=== PATIENT | female | born 1995 | race Caucasian/White ===

== ENCOUNTER 2018-10-15 14:40 | Emergency (ER) | payer MEDICAID, OTHER, SELFPAY ==
[~2018-10-15] VITALS: Ht 180.3 cm; Wt 75.0 kg
[2018-10-15] MEDS ORDERED: LEXA5TAB13 PO (14:46)
[2018-10-15] MEDS ORDERED: ACETAMINOPHEN 325 MG TAB PO ONE (15:00)
[2018-10-15 15:19] LABS: HEMATOCRIT 44.2 % (36.0-47.0); HEMOGLOBIN 14.6 g/dl (12.0-15.5); MEAN CORPUSCULAR HEMOGLOBIN 29.8 pg (27.0-33.0); MEAN CORPUSCULAR VOLUME 90.2 fl (80.0-96.0); PLATELET COUNT, AUTOMATED 291 10^3/uL (150-450); WHITE BLOOD COUNT 10.3 10^3/uL (4.0-10.0)
[2018-10-15 15:41] LABS: BLOOD UREA NITROGEN 9 MG/DL (7-18); CALCIUM LEVEL 9.4 MG/DL (8.5-10.1); CARBON DIOXIDE LEVEL 26 MEQ/L (21-32); CHLORIDE LEVEL 106 MEQ/L (98-107); CREATININE FOR GFR 0.78 MG/DL (0.55-1.30); GLOMERULAR FILTRATION RATE > 60.0 (>60); GLUCOSE, FASTING 108 MG/DL (70-100); POTASSIUM SERUM 4.6 MEQ/L (3.5-5.1); SODIUM LEVEL 137 MEQ/L (136-145)
[2018-10-15 15:42] LABS: HCG, SERUM QUALITATIVE NEGATIVE (NEGATIVE)
--- NOTE | 2018-10-15 16:06 | REP ---
Clinical: Trauma . Comparison: None . Findings: The ventricles, sulci, and cisterns are normal in position and appearance. Cano-white differentiation is maintained. No acute intracranial hemorrhage, mass/mass effect, pathology or trauma/injury. No evidence for acute infarction. No extra-axial fluid collection. Calvarium is intact. Paranasal sinuses and mastoid air cells are clear. Impression: Normal noncontrast head CT. No evidence for acute intracranial pathology or trauma/injury. Electronically Signed by Narendra Jo MD 10/15/2018 03:57 P
--- NOTE | 2018-10-15 16:08 | REP ---
Clinical: Trauma . Technique: Axial noncontrast images from the skull base to the thoracic inlet with coronal and sagittal re-formations Findings: Normal alignment and lordosis is maintained. Cervical vertebral bodies including transverse processes and spinous processes are intact and there is no evidence for acute fracture / compression injury or subluxation. Spinal canal is patent. Posterior elements are intact. Paravertebral soft tissues are normal. Old nondisplaced fracture through the T7 spinous process noted. Impression: No evidence for acute pathology or trauma/injury. Electronically Signed by Narendra Jo MD 10/15/2018 04:00 P
[2018-10-15 16:57] VITALS: BP 113/58
--- NOTE | 2018-10-15 17:11 | ECGEPIP ---
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
== END 2018-10-15 16:58 | disposition home or self-care (01) ==
LOC: M ED 14:40
DX: R55 Syncope and collapse (principal); I45.19 Other right bundle-branch block; Z79.899 Other long term (current) drug therapy

== ENCOUNTER → 2019-05-06 | Outpatient (CLI) | payer BC ==
[~2019-05-06] MED LIST: LEXA5TAB13 PO
[2019-05-06 16:17] LABS: BASO # 0.1 10^3/uL (0.0-0.2); BASO % 1.3 % (0.0-1.0); EOS # 0.1 10^3/uL (0.0-0.50); EOS % 1.7 % (0.0-3.0); HEMATOCRIT 42.5 % (36.0-47.0); LYMPH # 1.1 10^3/uL (1.5-6.5); LYMPH % 23.2 % (24.0-44.0); MEAN CORPUSCULAR HEMOGLOBIN 29.5 pg (27.0-33.0); MEAN CORPUSCULAR HGB CONC 32.9 g/dl (32.0-36.5); MEAN CORPUSCULAR VOLUME 89.5 fl (80.0-96.0); MONO # 0.5 10^3/uL (0.0-0.8); MONO % 11.1 % (0.0-5.0); NEUTROPHILS % 62.5 % (36.0-66.0); PLATELET COUNT, AUTOMATED 205 10^3/uL (150-450); RED BLOOD COUNT 4.75 10^6/uL (4.00-5.40); WHITE BLOOD COUNT 4.8 10^3/uL (4.0-10.0)
[2019-05-06 16:40] LABS: ALBUMIN 3.9 GM/DL (3.2-5.2); ALT/SGPT 27 U/L (12-78); BILIRUBIN,TOTAL 0.8 MG/DL (0.2-1.0); BLOOD UREA NITROGEN 9 MG/DL (7-18); CALCIUM LEVEL 9.2 MG/DL (8.5-10.1); CARBON DIOXIDE LEVEL 26 MEQ/L (21-32); CHLORIDE LEVEL 106 MEQ/L (98-107); FREE T4 1.03 NG/DL (0.76-1.46); GLOMERULAR FILTRATION RATE > 60.0 (>60); GLUCOSE, FASTING 90 MG/DL (70-100); POTASSIUM SERUM 4.1 MEQ/L (3.5-5.1); SODIUM LEVEL 140 MEQ/L (136-145); THYROID STIMULATING HORMONE 0.787 uIU/ML (0.358-3.740); TOTAL PROTEIN 7.6 GM/DL (6.4-8.2)
== END ==
LOC: M LAB 15:02
PROVIDERS: ATTEND Nurse Practitioner
DX: R10.84 Generalized abdominal pain (principal); M54.5 Low back pain; R53.83 Other fatigue

== ENCOUNTER → 2019-08-02 | Outpatient (CLI) | payer BC ==
[2019-08-02 12:47] LABS: HEMATOCRIT 39.6 % (36.0-47.0); HEMOGLOBIN 13.5 g/dl (12.0-15.5); MEAN CORPUSCULAR HGB CONC 34.1 g/dl (32.0-36.5); MEAN CORPUSCULAR VOLUME 90.8 fl (80.0-96.0); PLATELET COUNT, AUTOMATED 235 10^3/uL (150-450); RED BLOOD COUNT 4.36 10^6/uL (4.00-5.40)
[2019-08-02 14:06] LABS: HEPATITIS B SURFACE ANTIGEN NEGATIVE (NEGATIVE); HEPATITIS C VIRUS ABY INDEX 0.2 INDEX (<0.8); HIV 1&2 SCREEN CENTAUR NEGATIVE (NEGATIVE); RUBELLA IgG QUALITATIVE IMMUNE (IMMUNE)
[2019-08-02 14:42] LABS: CHLAMYDIA DNA AMPLIFICATION NEGATIVE (NEGATIVE); GC DNA AMPLIFICATION NEGATIVE (NEGATIVE)
== END ==
LOC: M SMT 08:10
PROVIDERS: ATTEND Advanced Practice Midwife
DX: Z34.81 Encounter for supervision of other normal pregnancy, first trimester (principal); Z3A.10 10 weeks gestation of pregnancy

== ENCOUNTER → 2019-08-27 | Outpatient (REF) | payer BC | LOC: M LAB REF 08:34 | PROVIDERS: ATTEND Advanced Practice Midwife | DX: Z12.4 Encounter for screening for malignant neoplasm of cervix (principal) ==

== ENCOUNTER → 2019-09-27 | Outpatient (CLI) | payer BC ==
--- NOTE | 2019-09-27 16:12 | REP ---
OB ULTRASOUND: Real-time sonographic evaluation of gravid uterus performed. There is a single living intrauterine gestation, estimated gestational age 18 weeks 3 days, EDC 02/25/2020. Today's measurements indicate appropriate growth. BPD 43 mm = 19 weeks 1 day, 69th percentile HC 158 mm = 18 weeks 5 days, 59th percentile AC 140 mm = 19 weeks 3 days, 71st percentile Femur length 30 mm = 19 weeks 1 day, 70th percentile HC/AC ratio 1.13, within normal range. Estimated weight 281 grams, 79th percentile. Cervix is closed and measures 3.5 cm in length. heart rate 160 beats per minute. SEEN/GROSSLY UNREMARKABLE Lateral ventricles Comment: Tiny cystic structures are seen in the choroid plexus bilaterally. Posterior fossa No Upper lip Yes Four-chamber heart Yes LVOT Yes RVOT Yes Stomach Yes Cord insertion Yes Three vessel cord Yes Kidneys Yes Bladder Yes Spine No position: Vertex. Placenta: Posterior and grade 0 with no previa or abruption. Amniotic fluid: Within normal limits. Electronically Signed by Je Cano MD 09/30/2019 04:13 P
== END ==
LOC: M RAD 09:43
PROVIDERS: ATTEND Advanced Practice Midwife
DX: Z34.82 Encounter for supervision of other normal pregnancy, second trimester (principal); Z36.89 Encounter for other specified antenatal screening; Z3A.18 18 weeks gestation of pregnancy

== ENCOUNTER → 2019-11-11 | Outpatient (CLI) | payer BC, MEDICAID ==
--- NOTE | 2019-11-11 12:06 | REP ---
Obstetric ultrasound for anatomy follow-up: Comparison is 09/27/2019. There is a single intrauterine gestation in a vertex presentation. There is movement and cardiac activity. The heart rate is 152 beats per minute. The placenta is posterior. There is no previa or abruptio. The placenta is grade 1. The amniotic fluid volume subjectively is normal. The cervix measures 4.3 cm length. Gestational age by today's ultrasound is 25 weeks 0 days. Gestational age by the first ultrasound is 24 weeks 6 days. Gestational age by LMP is 24 weeks 6 days. The JAYA is 02/25/2020. weight is 106 grams/1 pound, 12 ounces. This is the 60th percentile for 24 weeks 6 days. The following anatomic structures are identified and are unremarkable: Cranium, choroid plexus, cavum septum pellucidum, posterior fossa, four-chamber heart, diaphragm, stomach, cord insertion, three-vessel cord, kidneys, bladder and spine. On the comparison study there were bilateral choroid plexus cysts. These cysts are not identified today. On the prior study the spine was suboptimally demonstrated. On the study today the spine is adequately demonstrated and is unremarkable. On the study today the facial features, lungs, cardiac right and left ventricular outflow tracts were suboptimally demonstrated, however, these structures were adequately demonstrated previously and were and were unremarkable. No anomalies are identified today. Electronically Signed by Je Segovia MD 11/11/2019 11:57 A
== END ==
LOC: M WHC 10:08
PROVIDERS: ATTEND Advanced Practice Midwife
DX: Z34.02 Encounter for supervision of normal first pregnancy, second trimester (principal); Z36.2 Encounter for other antenatal screening follow-up; Z3A.25 25 weeks gestation of pregnancy

== ENCOUNTER → 2019-11-29 | Outpatient (CLI) | payer MEDICAID ==
[2019-11-29 11:39] LABS: HEMATOCRIT 38.4 % (36.0-47.0); HEMOGLOBIN 12.5 g/dl (12.0-15.5); MEAN CORPUSCULAR HGB CONC 32.6 g/dl (32.0-36.5); MEAN CORPUSCULAR VOLUME 92.1 fl (80.0-96.0); PLATELET COUNT, AUTOMATED 227 10^3/uL (150-450); RED BLOOD COUNT 4.17 10^6/uL (4.00-5.40); WHITE BLOOD COUNT 14.9 10^3/uL (4.0-10.0)
== END ==
LOC: M PLALAB 09:33
PROVIDERS: ATTEND Advanced Practice Midwife
DX: Z34.92 Encounter for supervision of normal pregnancy, unspecified, second trimester (principal); Z36.89 Encounter for other specified antenatal screening

== ENCOUNTER → 2020-01-27 | Outpatient (REF) | payer MEDICAID, OTHER ==
[2020-01-27 13:27] LABS: HEMATOCRIT 35.8 % (36.0-47.0); HEMOGLOBIN 11.5 g/dl (12.0-15.5); MEAN CORPUSCULAR HEMOGLOBIN 27.6 pg (27.0-33.0); MEAN CORPUSCULAR HGB CONC 32.1 g/dl (32.0-36.5); MEAN CORPUSCULAR VOLUME 86.1 fl (80.0-96.0); PLATELET COUNT, AUTOMATED 226 10^3/uL (150-450); RED BLOOD COUNT 4.16 10^6/uL (4.00-5.40)
[2020-01-27 13:33] LABS: ALT/SGPT 20 U/L (12-78); BILIRUBIN,TOTAL 0.4 MG/DL (0.2-1.0); CREATININE FOR GFR 0.52 MG/DL (0.55-1.30); GLOMERULAR FILTRATION RATE > 60.0 (>60); LDH LACTATE DEHYDROGENASE 150 U/L (84-246)
[2020-01-27 18:01] LABS: TOTAL PROTEIN,RANDOM URINE 44.3 MG/DL (0.0-12.0)
== END ==
LOC: M PLALAB 10:44
PROVIDERS: ATTEND Advanced Practice Midwife
DX: O13.3 Gestational [pregnancy-induced] hypertension without significant proteinuria, third trimester (principal); Z3A.00 Weeks of gestation of pregnancy not specified

== ENCOUNTER 2020-02-04 14:08 | Inpatient (IN) | payer OTHER, MEDICAID ==
[~2020-02-04] VITALS: Ht 177.8 cm; Wt 98.6 kg
[2020-02-04] VITALS (8 sets, daily range): BP systolic 123–138; BP diastolic 63–86
[2020-02-04] MEDS ORDERED: LACTATED RINGER'S 1000 ML IV STA (14:58)
[2020-02-04] MEDS ORDERED: PENICILLIN G POTASSIUM IV 5 MU in D5W MINI-BAG PLUS 100 ML IV STA (15:01)
[2020-02-04 15:47] LABS: HEMATOCRIT 35.1 % (36.0-47.0); HEMOGLOBIN 11.3 g/dl (12.0-15.5); MEAN CORPUSCULAR HEMOGLOBIN 27.3 pg (27.0-33.0); MEAN CORPUSCULAR HGB CONC 32.2 g/dl (32.0-36.5); MEAN CORPUSCULAR VOLUME 84.8 fl (80.0-96.0); PLATELET COUNT, AUTOMATED 226 10^3/uL (150-450); RED BLOOD COUNT 4.14 10^6/uL (4.00-5.40)
[2020-02-04] MEDS: miSOPROStol 50 MCG 1/2 TAB (S0191) SL SCH ×2 (15:50→22:12)
[2020-02-04] MEDS: LR 1,000 ML IV SCH ×2 (16:03→22:08)
[2020-02-04 16:07] LABS: ALT/SGPT 14 U/L (12-78); BILIRUBIN,TOTAL 0.4 MG/DL (0.2-1.0); CREATININE FOR GFR 0.51 MG/DL (0.55-1.30); GLOMERULAR FILTRATION RATE > 60.0 (>60); LDH LACTATE DEHYDROGENASE 158 U/L (84-246); URIC ACID 4.4 MG/DL (2.6-6.0)
[2020-02-04] MEDS ORDERED: SLF 3 ML SYR IV PRN (16:45)
[2020-02-04] MEDS ORDERED: SLF 3 ML SYR IV SCH (22:00)
[2020-02-04] MEDS: PENICILLIN G POTASSIUM IV 2.5 MU in IV 1 EA IV SCH (22:07)
[2020-02-05] VITALS (34 sets, daily range): BP systolic 110–204; BP diastolic 55–119
[2020-02-05] MEDS: PENICILLIN G POTASSIUM IV 2.5 MU in IV 1 EA IV SCH ×4 (01:59→15:51)
[2020-02-05] MEDS: miSOPROStol 50 MCG 1/2 TAB (S0191) SL SCH ×2 (04:00→09:53)
[2020-02-05] MEDS ORDERED: PROMETHAZINE INJ 25 MG/ML VIAL (J2550) IV ONE ×2 (04:00→11:30)
[2020-02-05] MEDS ORDERED: BUTORPHANOL 2 MG/ML INJ (J0595) IV ONE ×2 (04:00→11:30)
[2020-02-05 13:28] LABS: HEMATOCRIT 40.7 % (36.0-47.0); HEMOGLOBIN 12.8 g/dl (12.0-15.5); MEAN CORPUSCULAR HEMOGLOBIN 26.9 pg (27.0-33.0); MEAN CORPUSCULAR HGB CONC 31.4 g/dl (32.0-36.5); MEAN CORPUSCULAR VOLUME 85.7 fl (80.0-96.0); PLATELET COUNT, AUTOMATED 250 10^3/uL (150-450); RED BLOOD COUNT 4.75 10^6/uL (4.00-5.40); WHITE BLOOD COUNT 16.6 10^3/uL (4.0-10.0)
[2020-02-05] MEDS ORDERED: FENTANYL 2MCG/ML ROPIVACAINE 0.2% IN 0.9% NACL 100ML IVBAG As Ordered ONE (13:30)
[2020-02-05] MEDS ORDERED: REFRIGERATOR IV KEYS XX PRN (14:30)
[2020-02-05] MEDS ORDERED: LACTATED RINGER'S 1000 ML IV PRN (14:30)
[2020-02-05] MEDS ORDERED: EPIDURAL COMMENT XX SCH (14:30)
[2020-02-05] MEDS ORDERED: ePHEDrine SULFATE 25 MG/5 ML(5MG/ML) SYRINGE IV PRN (14:30)
[2020-02-05] MEDS ORDERED: EPIDURAL/PCA KEYS XX PRN (14:30)
[2020-02-05] MEDS ORDERED: NALOXONE INJ 0.4MG/1ML VIAL (J2310 PER 1MG) IV PRN (14:30)
[2020-02-05] MEDS ORDERED: ONDANSETRON 4MG/2ML VIAL IV PRN ×2 (14:30→19:45)
[2020-02-05] MEDS ORDERED: FENTANYL/ROPIVACAINE/NACL BAG 100 ML EPIDURAL SCH (14:30)
[2020-02-05] MEDS ORDERED: diphenhydrAMINE 50MG/ML VIAL (J1200) IV PRN (14:30)
[2020-02-05] MEDS ORDERED: OXYTOCIN DRIP 30 UNITS in IV 1 EA IV SCH (15:15)
[2020-02-05] MEDS: LR 1,000 ML IV SCH (16:34)
--- NOTE | 2020-02-05 19:44 | DN ---
DATE: 02/05/2020 PREDELIVERY DIAGNOSIS: At 37 weeks gestational hypertension, labor induction. POSTDELIVERY DIAGNOSIS: Delivered. PROCEDURE: Spontaneous vaginal delivery. EXTENSION WORK INSTRUCTOR: Dr. Max Mcelroy ANESTHESIA: Epidural ESTIMATED BLOOD LOSS: 300 ML. FINDINGS: AN 8-pound 8-ounce female , scores 8 and 9. DELIVERY SUMMARY: After a short second stage, patient had spontaneous delivery of an 8-pound 8-ounce female , scores 8 and 9, under epidural anesthesia. Loose nuchal cord times one was reduced. The shoulders delivered with ease. The cried immediately and was handed to the mother. The cord was doubly clamped and cut. The placenta delivered spontaneously and appeared to be intact. The patient received intravenous (IV) Pitocin immediately after delivery of the placenta. A small second-degree perineal laceration was repaired with 2-0 chromic in the usual fashion. Sponge and needle counts were correct.
[2020-02-05] MEDS ORDERED: IBUPROFEN 800 MG TAB PO PRN (19:45)
[2020-02-05] MEDS ORDERED: DIBUCAINE 1% OINTMENT 30GM TOP PRN (19:45)
[2020-02-05] MEDS ORDERED: DOCUSATE SODIUM 100 MG CAP PO PRN (19:45)
[2020-02-05] MEDS ORDERED: ACETAMINOPHEN TAB 650MG DOSE (2X325MG) PO PRN (19:45)
[2020-02-05] MEDS ORDERED: MEASLES,MUMPS,RUBELLA VACCINE INJ (MMR-II) (90707) SC SCH (19:45)
[2020-02-05] MEDS ORDERED: IBUPROFEN 600 MG TAB PO PRN (19:45)
[2020-02-05] MEDS ORDERED: ACETAMINOPHEN 500 MG TAB PO PRN (19:45)
[2020-02-05] MEDS ORDERED: RHOGAM 300 MCG (1500 IU) INJ (J2790) IM SCH (19:45)
[2020-02-05] MEDS ORDERED: OXYTOCIN DRIP 30 UNITS in IV 1 EA IV ONE (19:45)
[2020-02-05] MEDS ORDERED: METHYLERGONOVINE MALEATE 0.2 MG TAB PO PRN (19:45)
[2020-02-06 06:16] VITALS: BP 113/65
[2020-02-06] MEDS: PRENATAL VITAMINS CHEWABLE TABLET PO SCH (09:25)
[2020-02-06 18:00] VITALS: BP 126/85
[2020-02-07 05:37] VITALS: BP 113/60
[2020-02-07] MEDS ORDERED: ACET-683 PO (05:44)
[2020-02-07] MEDS ORDERED: IBUP80TA PO (05:45)
[2020-02-07] MEDS: PRENATAL VITAMINS CHEWABLE TABLET PO SCH (07:56)
== END 2020-02-07 13:15 | disposition home or self-care (01) | DRG 560 ==
LOC: M LDI 14:08 → M OBS 02-05 22:35
PROVIDERS: ADMIT Obstetrics & Gynecology; ATTEND Obstetrics & Gynecology
PROC: 10E0XZZ Delivery of Products of Conception, External Approach (ICD-10-PCS; principal; 2020-02-05)
PROC: 0KQM0ZZ Repair Perineum Muscle, Open Approach (ICD-10-PCS; 2020-02-05)
DX: O13.4 Gestational [pregnancy-induced] hypertension without significant proteinuria, complicating childbirth (principal); O99.820 Streptococcus B carrier state complicating pregnancy; Z37.0 Single live birth; Z3A.37 37 weeks gestation of pregnancy; O69.82X0 Labor and delivery complicated by other cord entanglement, without compression, not applicable or unspecified; O70.1 Second degree perineal laceration during delivery

== ENCOUNTER 2021-06-14 10:26 | Emergency (ER) | payer OTHER, MEDICAID ==
[~2021-06-14] VITALS: Ht 180.3 cm; Wt 74.3 kg
[~2021-06-14 10:26] MED LIST changes: +ACET-683 PO; +IBUP80TA PO
[2021-06-14 10:27] VITALS: BP 125/80
[2021-06-14] MEDS ORDERED: NS 1,000 ML IV ONE (11:15)
[2021-06-14] MEDS ORDERED: ONDANSETRON 4MG/2ML VIAL IV ONE (11:15)
[2021-06-14 12:09] LABS: BASO % 0.2 % (0.0-1.0); EOS % 0.1 % (0.0-3.0); HEMATOCRIT 42.5 % (36.0-47.0); HEMOGLOBIN 14.1 g/dl (12.0-15.5); LYMPH # 0.7 10^3/uL (1.5-5.0); LYMPH % 7.5 % (24.0-44.0); MEAN CORPUSCULAR HEMOGLOBIN 27.5 pg (27.0-33.0); MEAN CORPUSCULAR HGB CONC 33.2 g/dl (32.0-36.5); MEAN CORPUSCULAR VOLUME 82.8 fl (80.0-96.0); MONO # 0.5 10^3/uL (0.0-0.8); MONO % 5.7 % (2.0-8.0); NEUTROPHILS # 7.7 10^3/uL (1.5-8.5); NEUTROPHILS % 86.2 % (36.0-66.0); PLATELET COUNT, AUTOMATED 237 10^3/uL (150-450); RED BLOOD COUNT 5.13 10^6/uL (4.00-5.40)
[2021-06-14 14:32] LABS: ALBUMIN 3.1 GM/DL (3.2-5.2); ALT/SGPT 19 U/L (12-78); BILIRUBIN,DIRECT 0.2 MG/DL (0.0-0.2); BILIRUBIN,TOTAL 0.8 MG/DL (0.2-1.0); BLOOD UREA NITROGEN 8 MG/DL (7-18); CALCIUM LEVEL 8.7 MG/DL (8.5-10.1); CARBON DIOXIDE LEVEL 25 MEQ/L (21-32); CHLORIDE LEVEL 104 MEQ/L (98-107); CREATININE FOR GFR 0.46 MG/DL (0.55-1.30); GLOMERULAR FILTRATION RATE > 60.0 (>60); GLUCOSE, FASTING 98 MG/DL (70-100); HCG, SERUM QUANTITATIVE 173941 MIU/ML; LIPASE 82 U/L (73-393); POTASSIUM SERUM 3.9 MEQ/L (3.5-5.1); SODIUM LEVEL 136 MEQ/L (136-145); TOTAL PROTEIN 6.7 GM/DL (6.4-8.2)
[2021-06-14] MEDS ORDERED: ONDA4TAB6 PO (14:51)
== END 2021-06-14 15:05 | disposition home or self-care (01) ==
LOC: M ED 10:26
DX: O21.9 Vomiting of pregnancy, unspecified (principal); Z3A.10 10 weeks gestation of pregnancy; O30.001 Twin pregnancy, unspecified number of placenta and unspecified number of amniotic sacs, first trimester
CPT/HCPCS: 36415; 80048; 80076; 81001; 83690; 84702; 85025; 96361; 96374; 99283; J2405

== ENCOUNTER → 2021-07-27 | Outpatient (CLI) | payer OTHER ==
[~2021-07-27] MED LIST changes: +ONDA4TAB6 PO
--- NOTE | 2021-07-27 13:07 | REP ---
INDICATION: TWIN ANATOMY COMPARISON: None. TECHNIQUE: Transabdominal obstetrical ultrasound with color Doppler evaluation. FINDINGS: Examination demonstrates diamniotic dichorionic twin gestation. Cervix measures 4.0 cm in length and appears closed. Concordant growth is noted. Selected gestational age by biometrical measurements at 16 weeks 4 days with estimated date of delivery 01/07/2022. TWIN A: Twin A identified in cephalic presentation along the maternal right side. Placenta is noted posterior and grade 0 without evidence for placenta previa or abruption. motion is appreciated. Amniotic fluid volume is subjectively normal. FHR equals 142 beats per minute. BPD: 3.6 cm weeks; 17 weeks 0 days days HC: 13.3 cm weeks; 16 weeks 6 days days AC: 11.3 cm weeks; 17 weeks 1 day days FL: 2.1 cm weeks; 16 weeks 1 day days HL: 2.2 cm weeks; 16 weeks 5 days days HC/AC ratio: 1.17 Gestational age by current measurements: 16 weeks 5 days. Estimated weight 165 grams (54th percentile). Limited anatomical assessment demonstrates normal cranial structures, choroid plexus, cerebellum, posterior fossa, cisterna magna, facial profile, orbits, stomach, spine, and extremities.. TWIN B: Twin B identified in variable presentation along the maternal left side. Placenta is noted posterior and grade 0 without evidence for placenta previa or abruption. motion is appreciated. Amniotic fluid volume is subjectively normal. FHR equals 158 beats per minute. BPD: 3.4 cm weeks; 16 weeks 4 days days HC: 12.9 cm weeks; 16 weeks 4 days days AC: 10.7 cm weeks; 16 weeks 4 days days FL: 2.1 cm weeks; 16 weeks 2 days days HL: 2.2 cm weeks; 16 weeks 4 days days HC/AC ratio: 1.21 Gestational age by current measurements: 16 weeks 4 days. Estimated weight 157 grams (39th percentile). Limited anatomical assessment demonstrates normal cranial structures, choroid plexus, cerebellum, posterior fossa, cisterna magna, orbits, stomach, bladder, spine, and extremities. IMPRESSION: Diamniotic dichorionic twin gestation demonstrating appropriate concordant growth. Anatomical assessment is limited due to early age and re-evaluation at 19-20 weeks may be warranted. <Electronically signed by Narendra Jo > 07/27/21 [id number]
== END ==
LOC: M WHC 11:55
PROVIDERS: ATTEND Specialist
DX: O30.042 Twin pregnancy, dichorionic/diamniotic, second trimester (principal); Z3A.16 16 weeks gestation of pregnancy

== ENCOUNTER → 2021-08-11 | Outpatient (CLI) | payer MEDICAID, OTHER ==
[2021-08-11 14:03] LABS: BASO # 0.1 10^3/uL (0.0-0.2); BASO % 0.5 % (0.0-1.0); EOS # 0.2 10^3/uL (0.0-0.5); EOS % 1.6 % (0.0-3.0); HEMATOCRIT 36.2 % (36.0-47.0); HEMOGLOBIN 11.7 g/dl (12.0-15.5); LYMPH % 18.5 % (24.0-44.0); MEAN CORPUSCULAR HEMOGLOBIN 27.7 pg (27.0-33.0); MEAN CORPUSCULAR HGB CONC 32.3 g/dl (32.0-36.5); MEAN CORPUSCULAR VOLUME 85.6 fl (80.0-96.0); MONO # 0.7 10^3/uL (0.0-0.8); MONO % 6.3 % (2.0-8.0); NEUTROPHILS % 72.4 % (36.0-66.0); PLATELET COUNT, AUTOMATED 270 10^3/uL (150-450); RED BLOOD COUNT 4.23 10^6/uL (4.00-5.40)
[2021-08-11 14:32] LABS: ALT/SGPT 12 U/L (12-78); BILIRUBIN,TOTAL 0.5 MG/DL (0.2-1.0); CREATININE FOR GFR 0.46 MG/DL (0.55-1.30); CREATININE,RANDOM URINE 91.9 MG/DL; GLOMERULAR FILTRATION RATE > 60.0 (>60); LDH LACTATE DEHYDROGENASE 150 U/L (84-246); TOTAL PROTEIN,RANDOM URINE 23.9 MG/DL (0.0-12.0); URIC ACID 2.5 MG/DL (2.6-6.0)
[2021-08-11 15:21] LABS: HEPATITIS C VIRUS ABY INDEX < 0.0 INDEX (<0.8)
[2021-08-11 15:22] LABS: HIV 1&2 SCREEN CENTAUR NEGATIVE (NEGATIVE)
[2021-08-12 10:27] LABS: GC DNA AMPLIFICATION NEGATIVE (NEGATIVE)
== END ==
LOC: M PLALAB 08:59
PROVIDERS: ATTEND Advanced Practice Midwife
DX: O30.041 Twin pregnancy, dichorionic/diamniotic, first trimester (principal)

== ENCOUNTER → 2021-08-24 | Outpatient (CLI) | payer OTHER, MEDICAID ==
--- NOTE | 2021-08-24 16:55 | REP ---
INDICATION: TWINS, F/U ANATOMY. COMPARISON: 07/27/2021. TECHNIQUE: Real-time sonographic evaluation of the gravid uterus performed. FINDINGS: There is a living intrauterine twin gestation, diamniotic dichorionic. Estimated gestational age is20 weeks 4 days, EDC 01/07/2022. Today's measurements indicate appropriate concordant growth. Closed cervical length is measured at 4.1 cm. Fetus a: Presentation: Cephalic, right Placenta posterior, grade 0, without evidence of placenta previa. heart rate is recorded at 142 beats per minute. Amniotic fluid is subjectively normal. Biometry chart: BPD: 52 mm, 21 weeks 5 days, 80th percentile. HC: 183 mm, 20 weeks 5 days, 56th percentile AC: 152 mm, 20 weeks 3 days, 48th percentile Femur length: 35 mm, 21 weeks 0 days, 62nd percentile HC to AC ratio: 1.21, normal range 1.06-1.24. Estimated weight: 373g, 57th percentile. anatomy: Nose and lips, four-chamber heart, ventricular outflow tracts, kidneys and bladder are visualized and are grossly unremarkable. Fetus b: Presentation: Cephalic, left Placenta posterior, grade 0, without evidence of placenta previa. heart rate is recorded at 146 beats per minute. Amniotic fluid is subjectively normal. Biometry chart: BPD: 50 mm, 21 weeks 1 days, 65th percentile. HC: 181 mm, 20 weeks 3 days, 49th percentile AC: 157 mm, 20 weeks 6 days, 58th percentile Femur length: 34 mm, 20 weeks 6 days, 58th percentile HC to AC ratio: 1.15, normal range 1.06-1.24. Estimated weight: 380g, 62nd percentile. anatomy: Facial profile, nose, lips, four-chamber heart, ventricular outflow tracts, kidneys, three-vessel cord are visualized and are grossly unremarkable. IMPRESSION: Viable intrauterine twin gestation as above. <Electronically signed by Je Cano > 08/24/21 [id number]
== END ==
LOC: M WHC 09:19
PROVIDERS: ATTEND Advanced Practice Midwife
DX: O30.042 Twin pregnancy, dichorionic/diamniotic, second trimester (principal); Z3A.20 20 weeks gestation of pregnancy

== ENCOUNTER → 2021-10-04 | Outpatient (CLI) | payer OTHER, MEDICAID | LOC: M WHC 13:24 | PROVIDERS: ATTEND Obstetrics & Gynecology | DX: O30.042 Twin pregnancy, dichorionic/diamniotic, second trimester (principal); Z3A.26 26 weeks gestation of pregnancy ==

== ENCOUNTER → 2021-10-05 | Outpatient (CLI) | payer OTHER ==
[2021-10-05 13:11] LABS: HEMATOCRIT 32.9 % (36.0-47.0); HEMOGLOBIN 10.6 g/dl (12.0-15.5); MEAN CORPUSCULAR HEMOGLOBIN 27.2 pg (27.0-33.0); MEAN CORPUSCULAR HGB CONC 32.2 g/dl (32.0-36.5); MEAN CORPUSCULAR VOLUME 84.6 fl (80.0-96.0); PLATELET COUNT, AUTOMATED 217 10^3/uL (150-450); RED BLOOD COUNT 3.89 10^6/uL (4.00-5.40); WHITE BLOOD COUNT 13.6 10^3/uL (4.0-10.0)
[2021-10-05 14:37] LABS: GC DNA AMPLIFICATION NEGATIVE (NEGATIVE)
== END ==
LOC: M PLALAB 08:51
PROVIDERS: ATTEND Specialist
DX: O30.042 Twin pregnancy, dichorionic/diamniotic, second trimester (principal)

== ENCOUNTER → 2021-11-04 | Outpatient (REF) | LOC: M LABSMTC 13:49 | PROVIDERS: ATTEND Pediatrics | DX: Z11.52 Encounter for screening for COVID-19 (principal) ==

== ENCOUNTER → 2021-11-23 | Outpatient (CLI) | payer OTHER, MEDICAID | LOC: M WHC 07:54 | PROVIDERS: ATTEND Advanced Practice Midwife | DX: O30.043 Twin pregnancy, dichorionic/diamniotic, third trimester (principal); Z3A.33 33 weeks gestation of pregnancy; O32.1XX1 Maternal care for breech presentation, fetus 1; O32.1XX2 Maternal care for breech presentation, fetus 2 ==

== ENCOUNTER → 2021-12-07 | Outpatient (REF) | payer MEDICAID, OTHER | LOC: M SFHCWAGY 16:34 | PROVIDERS: ATTEND Specialist | DX: O30.003 Twin pregnancy, unspecified number of placenta and unspecified number of amniotic sacs, third trimester (principal) ==

== ENCOUNTER → 2023-01-19 | Outpatient (CLI) | payer MEDICAID, OTHER ==
[~2023-01-19] MED LIST changes: +COLA100C5 PO; +PERCOCET PO; +PRENTAB9 PO
[2023-01-19 08:07] LABS: BASO % 0.6 % (0.0-1.0); EOS # 0.3 10^3/uL (0.0-0.5); EOS % 4.1 % (0.0-3.0); HEMATOCRIT 35.7 % (36.0-47.0); HEMOGLOBIN 11.5 g/dl (12.0-15.5); LYMPH # 2.3 10^3/uL (1.5-5.0); LYMPH % 35.9 % (24.0-44.0); MEAN CORPUSCULAR HEMOGLOBIN 27.3 pg (27.0-33.0); MEAN CORPUSCULAR HGB CONC 32.2 g/dl (32.0-36.5); MEAN CORPUSCULAR VOLUME 84.8 fl (80.0-96.0); MONO # 0.3 10^3/uL (0.0-0.8); MONO % 5.4 % (2.0-8.0); NEUTROPHILS # 3.4 10^3/uL (1.5-8.5); NEUTROPHILS % 53.7 % (36.0-66.0); PLATELET COUNT, AUTOMATED 288 10^3/uL (150-450); RED BLOOD COUNT 4.21 10^6/uL (4.00-5.40); WHITE BLOOD COUNT 6.4 10^3/uL (4.0-10.0)
[2023-01-19 08:26] LABS: ALBUMIN 3.7 G/DL (3.2-5.2); ALKALINE PHOSPHATASE 57 U/L (46-116); ALT/SGPT 25 U/L (7.0-40); AST/SGOT 19 U/L (<34); BILIRUBIN,TOTAL 0.4 MG/DL (0.3-1.2); BLOOD UREA NITROGEN 9 MG/DL (9-23); CALCIUM LEVEL 8.7 MG/DL (8.5-10.1); CARBON DIOXIDE LEVEL 29 MMOL/L (20-31); CHLORIDE LEVEL 105 MMOL/L (98-107); CREATININE FOR GFR 0.59 MG/DL (0.55-1.30); GLOMERULAR FILTRATION RATE > 60.0 (>60); GLUCOSE, FASTING 89 MG/DL (60-100); POTASSIUM SERUM 3.4 MMOL/L (3.5-5.1); SODIUM LEVEL 138 MMOL/L (136-145); TOTAL IRON BINDING CAPACITY 356 UG/DL (250-425); TOTAL PROTEIN 6.6 G/DL (5.7-8.2)
[2023-01-19 08:27] LABS: IRON (FE) 24 UG/DL (50-170); PERCENT SATURATION 6.7 % (13.2-45.0)
[2023-01-20 15:09] LABS: EBV VIRAL CAPSID AG IgM 80.6 U/mL (0.0-35.9)
== END ==
LOC: M LAB 07:31
PROVIDERS: ATTEND Physician Assistant
DX: D50.9 Iron deficiency anemia, unspecified (principal); R53.83 Other fatigue

== ENCOUNTER → 2023-03-31 | Outpatient (REF) | LOC: M EMP 08:30 | PROVIDERS: ATTEND Family Medicine | DX: Z11.52 Encounter for screening for COVID-19 (principal) ==

== ENCOUNTER → 2023-11-03 | Outpatient (REF) | LOC: M EMP 12:12 | PROVIDERS: ATTEND Family Medicine | DX: Z11.52 Encounter for screening for COVID-19 (principal) ==

== ENCOUNTER → 2024-11-27 | Outpatient (CLI) | payer OTHER ==
[~2024-11-27] MED LIST changes: +ONDA-282 PO; -ONDA4TAB6 PO
[2024-11-27 14:43] LABS: HEMATOCRIT 41.9 % (36.0-47.0); HEMOGLOBIN 13.8 g/dl (12.0-15.5); MEAN CORPUSCULAR HEMOGLOBIN 28.9 pg (27.0-33.0); MEAN CORPUSCULAR HGB CONC 32.9 g/dl (32.0-36.5); MEAN CORPUSCULAR VOLUME 87.8 fl (80.0-96.0); PLATELET COUNT, AUTOMATED 246 10^3/uL (150-450); RED BLOOD COUNT 4.77 10^6/uL (4.00-5.40); WHITE BLOOD COUNT 8.7 10^3/uL (4.0-10.0)
[2024-11-27 15:17] LABS: HIV 1&2 SCREEN NEGATIVE (NEGATIVE)
[2024-11-27 15:26] LABS: HEPATITIS C VIRUS ABY INDEX 0.12 INDEX (<0.8)
[2024-11-27 16:39] LABS: GC DNA AMPLIFICATION NEGATIVE (NEGATIVE)
== END ==
LOC: M PLALAB 10:45
PROVIDERS: ATTEND Specialist
DX: Z34.81 Encounter for supervision of other normal pregnancy, first trimester (principal)

== ENCOUNTER → 2024-12-06 | Outpatient (CLI) | payer OTHER | LOC: M WHC 06:57 | PROVIDERS: ATTEND Specialist | DX: Z34.81 Encounter for supervision of other normal pregnancy, first trimester (principal); Z3A.21 21 weeks gestation of pregnancy ==

== ENCOUNTER → 2025-01-09 | Outpatient (CLI) | payer MEDICAID, OTHER | LOC: M WHC 09:31 | PROVIDERS: ATTEND Nurse Practitioner Family | DX: O32.2XX0 Maternal care for transverse and oblique lie, not applicable or unspecified (principal); Z3A.26 26 weeks gestation of pregnancy ==

== ENCOUNTER → 2025-01-13 | Outpatient (CLI) | payer OTHER ==
[2025-01-13 10:53] LABS: HEMATOCRIT 39.9 % (36.0-47.0); HEMOGLOBIN 13.3 g/dl (12.0-15.5); MEAN CORPUSCULAR HGB CONC 33.3 g/dl (32.0-36.5); MEAN CORPUSCULAR VOLUME 89.9 fl (80.0-96.0); PLATELET COUNT, AUTOMATED 212 10^3/uL (150-450); RED BLOOD COUNT 4.44 10^6/uL (4.00-5.40); WHITE BLOOD COUNT 10.2 10^3/uL (4.0-10.0)
[2025-01-13 11:21] LABS: GLUCOSE CHALLENGE TEST 1 HOUR 61 MG/DL (LESS THAN 140)
[2025-01-13 11:51] LABS: HIV 1&2 SCREEN NEGATIVE (NEGATIVE)
[2025-01-13 11:59] LABS: HEPATITIS C VIRUS ABY INDEX 0.04 INDEX (<0.8)
[2025-01-13 12:19] LABS: Trichomonas vaginalis (AMP) NOT DETECTED (NEGATIVE)
[2025-01-13 12:42] LABS: GC DNA AMPLIFICATION NEGATIVE (NEGATIVE)
== END ==
LOC: M PLALAB 08:16
PROVIDERS: ATTEND Nurse Practitioner Family
DX: Z34.80 Encounter for supervision of other normal pregnancy, unspecified trimester (principal)

== ENCOUNTER → 2025-01-17 | Outpatient (CLI) | payer MEDICAID, OTHER ==
[2025-01-20 12:07] LABS: RUBELLA IgG FOR TORCH EVAL 1.37 index (Immune >0.99); TOXOPLASMA IgG ABY <3.0 IU/mL (0.0-7.1)
[2025-01-20 15:41] LABS: CYTOMEGALOVIRUS IgM ANTIBODY < 30.00 AU/mL (<30.00); HERPES ZOSTER, VARICELLA IgG 6.26 S/CO (>=1.00)
== END ==
LOC: M PLALAB 12:32
PROVIDERS: ATTEND Obstetrics & Gynecology
DX: O36.5920 Maternal care for other known or suspected poor fetal growth, second trimester, not applicable or unspecified (principal); O43.192 Other malformation of placenta, second trimester; O09.32 Supervision of pregnancy with insufficient antenatal care, second trimester; Z13.79 Encounter for other screening for genetic and chromosomal anomalies; Z3A.00 Weeks of gestation of pregnancy not specified

== ENCOUNTER → 2025-01-24 | Outpatient (CLI) | payer OTHER | LOC: M WHC 12:11 | PROVIDERS: ATTEND Obstetrics & Gynecology | DX: O36.5920 Maternal care for other known or suspected poor fetal growth, second trimester, not applicable or unspecified (principal); Z3A.28 28 weeks gestation of pregnancy ==

== ENCOUNTER → 2025-01-31 | Outpatient (CLI) | payer OTHER | LOC: M WHC 13:23 | PROVIDERS: ATTEND Obstetrics & Gynecology | DX: O36.5920 Maternal care for other known or suspected poor fetal growth, second trimester, not applicable or unspecified (principal); Z3A.29 29 weeks gestation of pregnancy ==

== ENCOUNTER → 2025-02-07 | Outpatient (CLI) | payer OTHER | LOC: M WHC 12:57 | PROVIDERS: ATTEND Obstetrics & Gynecology | DX: O36.5930 Maternal care for other known or suspected poor fetal growth, third trimester, not applicable or unspecified (principal); Z3A.30 30 weeks gestation of pregnancy; O32.1XX0 Maternal care for breech presentation, not applicable or unspecified ==

== ENCOUNTER → 2025-02-14 | Outpatient (CLI) | payer OTHER | LOC: M WHC 13:08 | PROVIDERS: ATTEND Obstetrics & Gynecology | DX: O36.5920 Maternal care for other known or suspected poor fetal growth, second trimester, not applicable or unspecified (principal) ==

== ENCOUNTER → 2025-02-21 | Outpatient (CLI) | payer OTHER | LOC: M WHC 13:09 | PROVIDERS: ATTEND Obstetrics & Gynecology | DX: O36.5930 Maternal care for other known or suspected poor fetal growth, third trimester, not applicable or unspecified (principal); Z3A.32 32 weeks gestation of pregnancy ==

== ENCOUNTER → 2025-02-28 | Outpatient (CLI) | payer OTHER | LOC: M WHC 13:12 | PROVIDERS: ATTEND Obstetrics & Gynecology | DX: O36.5930 Maternal care for other known or suspected poor fetal growth, third trimester, not applicable or unspecified (principal); Z3A.33 33 weeks gestation of pregnancy ==

== ENCOUNTER → 2025-05-19 | Outpatient (RCR) | LOC: M EMPSSV 04-21 07:56 → M EMPSSVAL 04-21 07:56 | PROVIDERS: ATTEND Family Medicine | DX: Z20.828 Contact with and (suspected) exposure to other viral communicable diseases (principal) ==

== ENCOUNTER → 2025-08-06 | Outpatient (CLI) | payer MEDICAID, OTHER | LOC: M LAB 06:52 | PROVIDERS: ATTEND Advanced Practice Midwife | DX: O20.9 Hemorrhage in early pregnancy, unspecified (principal) ==

== ENCOUNTER → 2025-08-08 | Outpatient (CLI) | payer OTHER | LOC: M LAB 06:14 | PROVIDERS: ATTEND Advanced Practice Midwife | DX: O20.9 Hemorrhage in early pregnancy, unspecified (principal); Z3A.00 Weeks of gestation of pregnancy not specified ==